=== PATIENT | male | born 1980 | race Caucasian/White ===

== ENCOUNTER 2017-10-07 14:12 | Emergency (ER) | payer MEDICARE, MEDICAID ==
[~2017-10-07] VITALS: Ht 170.2 cm; Wt 70.0 kg
[~2017-10-07 14:12] MED LIST: HYDR-2412; RISP2
[2017-10-07 14:27] VITALS: BP 90/66
== END 2017-10-07 17:46 | disposition home or self-care (01) ==
LOC: ER 14:12
DX: Z00.8 Encounter for other general examination (principal); F99 Mental disorder, not otherwise specified; F91.8 Other conduct disorders; R46.1 Bizarre personal appearance
CPT/HCPCS: 99283